=== PATIENT | male | born 1935 | race Two or more races ===

== ENCOUNTER 2024-08-26 11:37 | Day surgery (SDC) | payer OTHER ==
[2024-08-24 09:16] VITALS: BP 165/76
[2024-08-24 09:20] LABS: HEMOGLOBIN 14.4 g/dL (13-16.00); MEAN CELL VOLUME 95.5 fL (80.0-100.00); MEAN CORPUSCULAR HEMOGLOBIN 32.8 pg (27.00-32.0); MEAN CORPUSCULAR HGB CONC 34.3 g/dl (32.0-36.0); PLATELET COUNT 198 K/uL (150-450); RED CELL DISTRIBUTION WIDTH 13.7 % (11.5-14.5)
[2024-08-24 09:24] LABS: PH,URINE 5.5 (5.0-8.0); URINE APPEARANCE Clear; URINE BILIRRUBIN Negative (NEGATIVE); URINE BLOOD Negative; URINE COLOR Yellow; URINE GLUCOSE Negative (NEGATIVE); URINE KETONE Negative (NEGATIVE); URINE LEUKOCYTE Negative; URINE NITRATE Negative; URINE PROTEIN Negative (NEGATIVE); URINE UROBILINOGEN 0.2 E.U./dl
[2024-08-24 09:31] LABS: URINE BACTERIA 4.8 uL (0.0-1933)
[2024-08-24 09:34] LABS: INR 1.02; PARTIAL THROMBOPLASTIN TIME 27.5 SECONDS (22.0-34.0); PROTHROMBIN TIME 11.1 SECONDS (9.0-11.5)
[2024-08-24 09:38] LABS: URINE EPITHELIAL CELLS 0.3 uL (0.0-38.8); URINE RBC 1.3 uL (0.0-20.8); URINE WBC 0.6 uL (0.0-23.2)
[2024-08-24 09:39] LABS: COL EPI 118 SECONDS (82-175)
[2024-08-24 10:29] LABS: ALBUMIN 3.7 gm/dL (3.4-5.0); BILIRUBIN TOTAL 0.8 mg/dL (0.3-1.2); CALCIUM 8.8 mg/dL (8.5-10.1); CREATININE SERUM 1.09 mg/dL (0.70-1.30); GFR 63.99; GLOBULINA 3.1 G/DL (2.4-3.5); POTASSIUM 4.24 mEq/L (3.5-5.1); TOTAL PROTEIN 6.8 gm/dL (6.4-8.2)
[~2024-08-26] VITALS: Ht 177.8 cm; Wt 81.6 kg
[~2024-08-26 11:37] MED LIST: CILOSTAZOL100 MG PO; COZAAR100 MG PO; HYDROCHLOROTHIA25 MG PO; NORVASC5 MG PO; PLAVIX75 MG PO
[2024-08-26] MEDS ORDERED: DEXAMETHASONE SODIUM PHOSPHATE 4 MG/ML VIAL IJ ONE (16:30)
[2024-08-26] MEDS ORDERED: IOHEXOL 240 mgI/ML 100ML BOTT IV ONE (16:45)
== END 2024-08-26 18:20 | disposition home or self-care (01) ==
LOC: CIR.AMB 11:37
PROVIDERS: ATTEND Anesthesiology Pain Medicine
DX: M48.061 Spinal stenosis, lumbar region without neurogenic claudication (principal); M51.369 Other intervertebral disc degeneration, lumbar region without mention of lumbar back pain or lower extremity pain; I10 Essential (primary) hypertension

== ENCOUNTER 2025-04-20 10:33 | Emergency (ER) | payer OTHER ==
[~2025-04-20] VITALS: Ht 175.3 cm; Wt 81.6 kg
[2025-04-20 11:45] VITALS: BP 152/83; O2SAT 97
[2025-04-20] MEDS ORDERED: LIDOCAINE HCL 1% 10ML VIAL PERCUT ONE (12:30)
[2025-04-20] MEDS ORDERED: TETANUS & DIPHTHERIA TOX,ADULT 0.5 ML VIAL IM ONE (12:30)
[2025-04-20] MEDS ORDERED: KETOROLAC TROMETHAMINE 60 MG VIAL IM ONE (12:30)
[2025-04-20] MEDS ORDERED: CEFTRIAXONE SODIUM 1,000 MG VIAL IM ONE (12:30)
[2025-04-20] MEDS ORDERED: CEFUROXIME500 MG PO (15:14)
[2025-04-20] MEDS ORDERED: PEPCID AC20 MG PO (15:14)
== END 2025-04-20 15:33 | disposition home or self-care (01) ==
LOC: ER 10:34
DX: S01.521A Laceration with foreign body of lip, initial encounter (principal); W18.39XA Other fall on same level, initial encounter; Y93.89 Activity, other specified; Y92.89 Other specified places as the place of occurrence of the external cause; I25.10 Atherosclerotic heart disease of native coronary artery without angina pectoris; I10 Essential (primary) hypertension; S40.812A Abrasion of left upper arm, initial encounter; S40.811A Abrasion of right upper arm, initial encounter; S80.811A Abrasion, right lower leg, initial encounter; S80.212A Abrasion, left knee, initial encounter
CPT/HCPCS: 12011; 70450; 72125; 72190; 73090; 73551; 73560; 96372; 99284; J0696; J1885

== ENCOUNTER 2025-04-28 07:29 | Outpatient (CLI) | payer OTHER ==
[~2025-04-28 07:29] MED LIST changes: +CEFUROXIME500 MG PO; +PEPCID AC20 MG PO
== END 2025-04-28 08:29 | disposition home or self-care (01) ==
LOC: WOUND CARE 07:29 → WOUND MED 07:29
PROVIDERS: ATTEND Specialist
DX: L97.112 Non-pressure chronic ulcer of right thigh with fat layer exposed (principal)
CPT/HCPCS: 97602; A4927; A6199; A6220; A6223